=== PATIENT | male | born 1990 | race Two or more races ===

== ENCOUNTER 2018-11-12 21:06 | Emergency (ER) | payer BC, OTHER ==
[~2018-11-12] VITALS: Ht 170.2 cm; Wt 101.2 kg
[2018-11-12] MEDS ORDERED: PROCHLORPERAZINE 10MG TABLET PO ONE (22:00)
[2018-11-12] MEDS ORDERED: KETOROLAC 30 MG/1 ML IM ONE (22:00)
[2018-11-12] MEDS ORDERED: ACETAMINOPHEN 325 MG TABLET PO ONE (22:00)
[2018-11-12] MEDS ORDERED: ACETAMINOPHEN 500 MG TABLET ONE (22:23)
[2018-11-12] MEDS ORDERED: PROCHLORPERAZINE 10MG TABLET ONE (22:23)
[2018-11-12] MEDS ORDERED: KETOROLAC 30 MG/1 ML ONE (22:23)
[2018-11-12 23:50] VITALS: BP 118/70
== END 2018-11-13 | disposition home or self-care (01) ==
LOC: ED 23:57
DX: R51 Headache (principal)
CPT/HCPCS: 70450; 96372; 99284; J1885; Q0164